=== PATIENT | male | born 1940 | race African-American/Black ===

== ENCOUNTER 2021-05-24 09:10 | Inpatient (IN) | payer MEDICARE ==
[2021-05-24 09:41] LABS: #Eosinphils 0.2 thou/uL (0.0-0.7); #Lymphocytes 2.1 thou/uL (1.20-3.40); #Monocytes 0.7 thou/uL (0.11-0.59); #Neutrophils 5.2 thou/uL (1.40-6.50); %Basophils 0.3 % (0.0-1.0); %Eosinophils 1.9 % (0.0-10.0); %Lymphocytes 25.7 % (21.0-51.0); %Monocytes 8.5 % (0.0-10.0); %Neutrophils 63.7 % (42.0-75.0); Hemoglobin 14.4 g/dL (14.0-18.0); Mean Corpuscular HGB CONC 35.5 g/dL (32.0-36.0); Mean Corpuscular Volume 90.3 fL (78.0-98.0); Mean Platelet Volume 6.1 fL (7.4-10.4); Platelet Count 321 thou/uL (130-400); RBC Distribution Width 14.5 % (11.5-14.5); White Blood Cell (WBC) Count 8.2 thou/uL (4.8-10.8)
[2021-05-24 09:58] LABS: ALT (SGPT) 14 U/L (8-55); AST (SGOT) 17 U/L (5-34); Albumin 3.9 g/dL (3.4-4.8); Alkaline Phosphatase 63 U/L (40-110); Anion Gap 13 mmol/L (10-20); BUN (Urea Nitrogen) 21 mg/dL (8.4-25.7); Bilirubin, Total 0.5 mg/dL (0.2-1.2); Calc. Creatinine Clearance 0 mL/min (70-130); Calcium 9.7 mg/dL (7.8-10.44); Carbon Dioxide 24 mmol/L (23-31); Chloride 106 mmol/L (98-107); Globulin 3.4 g/dL (2.4-3.5); Glucose 114 mg/dL (83-110); Lipase 16 U/L (8-78); Potassium 4.2 mmol/L (3.5-5.1); Protein, Total 7.3 g/dL (5.8-8.1); Sodium 139 mmol/L (136-145)
[2021-05-24] MEDS ORDERED: Polyethylene Glycol 3350 17 GM Packet PO SCH (12:27)
[2021-05-24 12:55] LABS: Hemoglobin A1c 5.9 % (4.0-6.0)
[2021-05-24 13:06] LABS: Cardiac Risk 4.4 (Less than 4.5); Cholesterol 190 mg/dl (< 200 Desired); HDL Cholesterol 43 mg/dL (>60 Neg Risk); LDL Cholesterol, Calculated 131 mg/dL; Phosphorus 2.9 mg/dL (2.3-4.7); Triglycerides 81 mg/dL (Less than 150)
[2021-05-24 13:11] LABS: Troponin I 0.014 ng/mL (< 0.028)
[2021-05-24 14:33] LABS: SARS-CoV-2 NAA Rapid Test Not Detected (NotDetected)
[2021-05-24 15:01] LABS: Bacteria/HPF None Seen HPF (None Seen); Bilirubin Negative (Negative); Blood, Urine Negative (Negative); Clarity Clear (Clear); Glucose, Urine (Dipstick) Normal (Negative); Ketone, Urine Negative (Negative); Leukocyte 25 Leu/uL (Negative); Nitrite Negative (Negative); Protein, Urine (Dipstick) Negative (Neg-Trace); RBC/HPF 0-3 HPF (0-3); Squamous Epithelial 0-3 HPF (0-3); Urobilinogen Normal mg/dL (Less than 2); pH, Urine 5.5 (5.0-9.0)
[2021-05-24 16:39] VITALS: BMI 29.0
[2021-05-24 19:08] LABS: Troponin I Less than 0.010 ng/mL (< 0.028)
[2021-05-25] MEDS: Lisinopril/Hydrochlorothiazide 20/25 mg Tablet PO SCH (07:36)
[2021-05-25] MEDS: Amlodipine 5 MG TAB PO SCH (07:36)
[2021-05-25] MEDS: Enoxaparin Sodium 40 MG/0.4 ML SYRINGE SC SCH (07:37)
[2021-05-25] MEDS: Clopidogrel Bisulfate 75 MG TAB PO SCH (07:37)
[2021-05-25] MEDS ORDERED: Meclizine HCl 25 MG TAB PO SCH (09:00)
[2021-05-25] MEDS ORDERED: Famotidine 20 MG TAB PO SCH (09:26)
[2021-05-25 11:29] LABS: Anion Gap 10 mmol/L (10-20); BUN (Urea Nitrogen) 19 mg/dL (8.4-25.7); Calc. Creatinine Clearance 63 mL/min (70-130); Calcium 9.4 mg/dL (7.8-10.44); Carbon Dioxide 25 mmol/L (23-31); Chloride 107 mmol/L (98-107); Glucose 110 mg/dL (83-110); Potassium 3.6 mmol/L (3.5-5.1); Sodium 138 mmol/L (136-145)
[2021-05-25 11:38] LABS: #Eosinphils 0.2 thou/uL (0.0-0.7); #Lymphocytes 2.2 thou/uL (1.20-3.40); #Monocytes 0.9 thou/uL (0.11-0.59); #Neutrophils 5.1 thou/uL (1.40-6.50); %Basophils 0.5 % (0.0-1.0); %Eosinophils 2.3 % (0.0-10.0); %Lymphocytes 26.3 % (21.0-51.0); %Monocytes 10.3 % (0.0-10.0); %Neutrophils 60.6 % (42.0-75.0); Hemoglobin 12.7 g/dL (14.0-18.0); Mean Corpuscular HGB CONC 33.8 g/dL (32.0-36.0); Mean Corpuscular Hemoglobin 30.4 pg (27.0-31.0); Mean Corpuscular Volume 89.8 fL (78.0-98.0); Mean Platelet Volume 6.2 fL (7.4-10.4); Platelet Count 316 thou/uL (130-400); RBC Distribution Width 14.1 % (11.5-14.5); Red Blood Cell (RBC) Count 4.18 mill/uL (4.70-6.10); White Blood Cell (WBC) Count 8.4 thou/uL (4.8-10.8)
[2021-05-25] MEDS: Terbinafine 250 MG TAB PO SCH (12:01)
[2021-05-25] MEDS ORDERED: Meclizine HCl 25 MG TAB PO PRN (13:56)
[2021-05-26] MEDS: Enoxaparin Sodium 40 MG/0.4 ML SYRINGE SC SCH (08:24)
[2021-05-26] MEDS: Lisinopril/Hydrochlorothiazide 20/25 mg Tablet PO SCH (08:25)
[2021-05-26] MEDS: Clopidogrel Bisulfate 75 MG TAB PO SCH (08:26)
[2021-05-26] MEDS: Terbinafine 250 MG TAB PO SCH (08:26)
[2021-05-26] MEDS: Amlodipine 5 MG TAB PO SCH (08:27)
[2021-05-26 15:47] VITALS: BP 127/68; TEMP 97.5
[2021-05-26] MEDS ORDERED: Sotalol HCl 80 MG TAB PO SCH (21:00)
[2021-05-26] MEDS ORDERED: Atorvastatin Calcium 20 MG TAB PO SCH (21:00)
[2021-05-27] MEDS ORDERED: FLU VACC QS2021-22(65YR UP)/PF 240 MCG/0.7 ML SYRINGE IM ONE (17:45)
== END 2021-05-26 20:14 | disposition home or self-care (01) | DRG 880 ==
LOC: ERS 09:10 → INTOOBSV 11:09 → ERHOLD 11:09 → 2SW 14:57 → OBSVTOIN 05-25 17:35
PROVIDERS: ADMIT Student in an Organized Health Care Education/Training Program; ATTEND Student in an Organized Health Care Education/Training Program
DX: F41.9 Anxiety disorder, unspecified (principal); N17.9 Acute kidney failure, unspecified; B49 Unspecified mycosis; R07.89 Other chest pain; Z20.822 Contact with and (suspected) exposure to COVID-19; E78.5 Hyperlipidemia, unspecified; M19.90 Unspecified osteoarthritis, unspecified site; R60.0 Localized edema; I49.3 Ventricular premature depolarization; N18.9 Chronic kidney disease, unspecified; I12.9 Hypertensive chronic kidney disease with stage 1 through stage 4 chronic kidney disease, or unspecified chronic kidney disease; I48.91 Unspecified atrial fibrillation; Z79.899 Other long term (current) drug therapy; Z79.02 Long term (current) use of antithrombotics/antiplatelets
CPT/HCPCS: 0240U; 36415; 71045; 78452; 80048; 80061; 81003; 81015; 83036; 83690; 83735; 84100; 84443; 84484; 85025; 93005; 93017; 93922; 93970; 94760; J1650

== ENCOUNTER 2021-12-26 13:18 | Emergency (ER) | payer MEDICARE ==
[2021-12-26 14:53] LABS: #Lymphocytes 2.5 thou/uL (1.20-3.40); #Monocytes 0.8 thou/uL (0.11-0.59); #Neutrophils 4.4 thou/uL (1.40-6.50); %Basophils 0.6 % (0.0-1.0); %Lymphocytes 32.1 % (21.0-51.0); %Monocytes 10.1 % (0.0-10.0); %Neutrophils 57.2 % (42.0-75.0); Hemoglobin 15.4 g/dL (14.0-18.0); Mean Corpuscular HGB CONC 34.2 g/dL (32.0-36.0); Mean Corpuscular Hemoglobin 33.7 pg (27.0-31.0); Mean Corpuscular Volume 98.6 fL (78.0-98.0); Mean Platelet Volume 6.2 fL (7.4-10.4); Platelet Count 299 thou/uL (130-400); RBC Distribution Width 14.3 % (11.5-14.5); Red Blood Cell (RBC) Count 4.55 mill/uL (4.70-6.10); White Blood Cell (WBC) Count 7.6 thou/uL (4.8-10.8)
[2021-12-26 16:12] LABS: Anion Gap 15 mmol/L (10-20); BUN (Urea Nitrogen) 26 mg/dL (8.4-25.7); Calc. Creatinine Clearance 0 mL/min (70-130); Carbon Dioxide 23 mmol/L (23-31); Chloride 103 mmol/L (98-107); Potassium 4.7 mmol/L (3.5-5.1); Sodium 136 mmol/L (136-145)
[2021-12-26 16:13] LABS: ALT (SGPT) 15 U/L (8-55); AST (SGOT) 23 U/L (5-34); Albumin 4.2 g/dL (3.4-4.8); Alkaline Phosphatase 62 U/L (40-110); Bilirubin, Total 0.6 mg/dL (0.2-1.2); Calcium 10.4 mg/dL (7.8-10.44); Globulin 4.3 g/dL (2.4-3.5); Glucose 86 mg/dL (83-110); Protein, Total 8.5 g/dL (5.8-8.1)
== END 2021-12-26 17:51 | disposition left against medical advice (07) ==
LOC: ERS 13:18
DX: Z53.21 Procedure and treatment not carried out due to patient leaving prior to being seen by health care provider (principal)
CPT/HCPCS: 36415; 80053; 85025

== ENCOUNTER 2021-12-29 09:42 | Emergency (ER) | payer MEDICARE ==
[2021-12-29 12:00] LABS: #Lymphocytes 2.1 thou/uL (1.20-3.40); #Monocytes 1.1 thou/uL (0.11-0.59); %Basophils 0.5 % (0.0-1.0); %Lymphocytes 22.9 % (21.0-51.0); %Neutrophils 64.6 % (42.0-75.0); Hemoglobin 13.5 g/dL (14.0-18.0); Mean Corpuscular HGB CONC 35.2 g/dL (32.0-36.0); Mean Corpuscular Hemoglobin 35.3 pg (27.0-31.0); Mean Platelet Volume 6.3 fL (7.4-10.4); Platelet Count 310 thou/uL (130-400); RBC Distribution Width 14.5 % (11.5-14.5); Red Blood Cell (RBC) Count 3.82 mill/uL (4.70-6.10); White Blood Cell (WBC) Count 9.3 thou/uL (4.8-10.8)
[2021-12-29 12:20] LABS: Phosphorus 2.8 mg/dL (2.3-4.7)
[2021-12-29 12:23] LABS: ALT (SGPT) 22 U/L (8-55); AST (SGOT) 46 U/L (5-34); Albumin 3.9 g/dL (3.4-4.8); Alkaline Phosphatase 56 U/L (40-110); Anion Gap 17 mmol/L (10-20); BUN (Urea Nitrogen) 41 mg/dL (8.4-25.7); Bilirubin, Total 0.6 mg/dL (0.2-1.2); Calc. Creatinine Clearance 0 mL/min (70-130); Calcium 9.6 mg/dL (7.8-10.44); Carbon Dioxide 21 mmol/L (23-31); Chloride 105 mmol/L (98-107); Glucose 100 mg/dL (83-110); Magnesium 2.3 mg/dL (1.6-2.6); Potassium 3.9 mmol/L (3.5-5.1); Protein, Total 7.9 g/dL (5.8-8.1); Sodium 139 mmol/L (136-145)
== END 2021-12-29 15:01 | disposition home or self-care (01) ==
LOC: ERS 09:42
DX: R53.1 Weakness (principal); I10 Essential (primary) hypertension; I48.91 Unspecified atrial fibrillation; Z79.899 Other long term (current) drug therapy
CPT/HCPCS: 36415; 80053; 83735; 84100; 85025; 96360; 96361

== ENCOUNTER 2023-04-21 09:51 | Observation (INO) | payer OTHER ==
[2023-04-21] MEDS ORDERED: Meclizine HCl 25 MG TAB PO PRN (11:06)
[2023-04-21] MEDS ORDERED: Acetaminophen 500 MG TAB PO PRN (11:06)
[2023-04-21] MEDS ORDERED: Ondansetron PF 4 MG/2 ML Vial IVP PRN (11:06)
[2023-04-21] MEDS ORDERED: Nitroglycerin 0.4 MG TAB (25 Tab Bottle) SL PRN (11:06)
[2023-04-21] MEDS ORDERED: Ondansetron ODT 4 MG TAB PO PRN (11:06)
[2023-04-21] MEDS ORDERED: Ibuprofen 200 MG TAB PO PRN (11:06)
[2023-04-21] MEDS ORDERED: hydrALAZINE 20 MG/ML VIAL SLOW IVP PRN (11:06)
[2023-04-21 12:16] LABS: Troponin I Less than 0.010 ng/mL (< 0.028)
[2023-04-21 15:19] VITALS: BMI 26.9
[2023-04-21] MEDS ORDERED: FLU VACC QS2023(65UP)/MF59C/PF 60 MCG/0.5 ML SYRINGE IM ONE (15:30)
[2023-04-21] MEDS: Sotalol HCl 80 MG TAB PO SCH (21:29)
[2023-04-21] MEDS: Famotidine 20 MG TAB PO SCH (21:29)
[2023-04-21] MEDS: Senokot S 8.6-50 MG TAB PO SCH (21:29)
[2023-04-22 04:32] LABS: #Neutrophils 3.8 thou/uL (1.40-6.50); %Basophils 0.3 % (0.0-1.0); %Lymphocytes 33.6 % (21.0-51.0); %Monocytes 13.3 % (0.0-10.0); %Neutrophils 52.7 % (42.0-75.0); Hematocrit 38.2 % (42.0-52.0); Mean Corpuscular Hemoglobin 33.9 pg (27.0-31.0); Mean Corpuscular Volume 99.7 fl (78.0-98.0); Mean Platelet Volume 8.6 fL (7.4-10.4); Platelet Count 215 10x3/uL (130-400); RBC Distribution Width 15.4 % (11.5-14.5); Red Blood Cell (RBC) Count 3.83 mill/uL (4.70-6.10); White Blood Cell (WBC) Count 7.3 10x3/uL (4.8-10.8)
[2023-04-22 04:57] LABS: Anion Gap 11 mmol/L (10-20); BUN (Urea Nitrogen) 18 mg/dL (8.4-25.7); Calc. Creatinine Clearance 81 mL/min (70-130); Calcium 9.2 mg/dL (7.8-10.44); Carbon Dioxide 24 mmol/L (23-31); Cardiac Risk 3.9 (Less than 4.5); Chloride 107 mmol/L (98-107); Cholesterol 152 mg/dl (< 200 Desired); Estimated GFR 86; Glucose 92 mg/dL (83-110); HDL Cholesterol 39 mg/dL (>60 Neg Risk); LDL Cholesterol, Calculated 101 mg/dL; Sodium 138 mmol/L (136-145); Triglycerides 60 mg/dL (Less than 150)
[2023-04-22] MEDS: Senokot S 8.6-50 MG TAB PO SCH (08:49)
[2023-04-22] MEDS: Famotidine 20 MG TAB PO SCH (08:49)
[2023-04-22] MEDS: Sotalol HCl 80 MG TAB PO SCH (08:49)
[2023-04-22] MEDS ORDERED: Sertraline 25 MG TAB PO SCH (09:00)
[2023-04-22] MEDS ORDERED: Aspirin Chewable 81 MG TAB PO SCH (09:00)
[2023-04-22] MEDS ORDERED: Lisinopril 2.5 MG TAB PO SCH (10:30)
[2023-04-22 16:06] VITALS: BP 149/70; TEMP 97.6
[2023-04-23] MEDS ORDERED: Lisinopril 5 MG TAB PO SCH (09:00)
== END 2023-04-22 16:18 | disposition home or self-care (01) ==
LOC: 2NO 09:51 → INTOOBSV 09:51
PROVIDERS: ADMIT Internal Medicine; ATTEND Family Medicine
DX: M79.622 Pain in left upper arm (principal); M19.90 Unspecified osteoarthritis, unspecified site; I08.3 Combined rheumatic disorders of mitral, aortic and tricuspid valves; I16.0 Hypertensive urgency; I10 Essential (primary) hypertension; I89.0 Lymphedema, not elsewhere classified; F32.A Depression, unspecified; F03.90 Unspecified dementia, unspecified severity, without behavioral disturbance, psychotic disturbance, mood disturbance, and anxiety; D53.9 Nutritional anemia, unspecified; I48.91 Unspecified atrial fibrillation; Z79.899 Other long term (current) drug therapy
CPT/HCPCS: 80048; 80061; 82607; 84484; 85025; 93306; 96374; 97530; G0378 ×2; J0360; 36415